=== PATIENT | female | born 1995 | race Two or more races ===

== ENCOUNTER 2023-05-13 15:14 | Emergency (ER) | payer MEDICAID ==
[~2023-05-13] VITALS: Ht 152.4 cm; Wt 56.7 kg
[2023-05-13 15:21] VITALS: BP 126/77; TEMP 97.9
[2023-05-13] MEDS ORDERED: ACETAMINOPHEN ES 500 MG TABLET ONE (17:30)
[2023-05-13] MEDS: ACETAMINOPHEN ES 500 MG TABLET PO ONE (17:32)
[2023-05-13] MEDS ORDERED: ACET-2605 PO (17:59)
[2023-05-13] MEDS ORDERED: IBUP-1955 PO (17:59)
[2023-05-13 18:25] VITALS: O2SAT 97
== END 2023-05-13 18:27 | disposition home or self-care (01) ==
LOC: ER 15:21
DX: M79.672 Pain in left foot (principal); M79.671 Pain in right foot; Z60.2 Problems related to living alone